=== PATIENT | male | born 2000 | race Caucasian/White ===

== ENCOUNTER 2020-10-23 13:07 | Emergency (ER) | payer OTHER ==
--- NOTE | 2020-10-23 15:36 | ED Physician Documentation ---
PD HPI FOCAL NEURO - Stated complaint Stated Complaint: SPEECH PROB/HEAD PX - Chief complaint Chief Complaint: Neuro - History obtained from History obtained from: Patient - Additional information Additional information: I was initially called out into the waiting room for rapid response. This young man had had a seizure. He was brought in for a week of stuttering, some word finding difficulty and a sensation of pulsating tongue. He was attended to in the waiting room and then moved back into the department. I observed him to have tonic-clonic seizure activity as I arrived in the waiting room which quickly abated. He started talking but was confused. Thought he was in [place]. 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, No motor deficit, No sensory deficit, Normal speech Eye Opening: Spontaneous Motor: Obeys Commands Verbal: Confused GCS Score: 14 Results - Vitals Vitals: Vital Signs - 24 hr 10/23/20 10/23/20 10/23/20 13:32 16:00 16:30 Temperature 37 C Heart Rate 80 135 H 107 H Respiratory 16 22 23 Rate Blood Pressure 132/77 H 128/68 111/64 O2 Saturation 100 99 98 Oxygen O2 Source Room air - EKG (time done) 1532 Rate: Rate (enter#) (100) Rhythm: Sinus tachycardia [place]: Normal Intervals: Normal MT, Prolonged QT (520msec) QRS: Normal Ischemia: Normal ST segments - Labs Labs: Laboratory Tests 10/23/20 10/23/20 10/23/20 15:30 15:35 15:35 WBC 13.0 H RBC 5.51 Hgb 17.4 Hct 53.0 H MCV 96.2 H MCH 31.6 H MCHC 32.8 RDW 12.1 Plt Count 363 MPV 9.5 Neut # (Auto) 8.6 H Lymph # (Auto) 3.6 H [place] # (Auto) 0.6 Eos # (Auto) 0.1 Baso # (Auto) 0.0 Absolute Nucleated RBC 0.00 Nucleated RBC % 0.0 Sodium 143 Potassium 3.4 L Chloride 99 L Carbon Dioxide 13 L Anion Gap 31.0 H BUN 14 Creatinine 0.9 Estimated GFR (MDRD) 106 Glucose 90 POC Whole Bld Glucose 76 Calcium 10.0 Magnesium 2.5 Total Bilirubin 2.6 H AST 30 ALT 26 Alkaline Phosphatase 29 L Total Protein 9.3 H Albumin 5.7 H Globulin 3.6 Albumin/Globulin Ratio 1.6 Ethyl Alcohol < 5.0 PD MEDICAL DECISION MAKING - ED course ED course: 20-year-old gentleman with odd neurologic symptoms and then had a tonic-clonic seizure in the waiting room also has long QT on his EKG. Could be a cardiac or neurologic abnormality. Head CT was normal. 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 Accepted by Dr Stone at [facility] at 1758 Departure - Departure Disposition: 02 Transfer Acute Care Hosp Clinical Impression: Long QT interval, Seizure Condition: Serious
[2020-10-23 15:39] LABS: BASOPHILS % (AUTO) 0.3 %; EOSINOPHILS # (AUTO) 0.1 10^3/uL (0.0-0.7); EOSINOPHILS % (AUTO) 0.5 %; HGB - HEMOGLOBIN 17.4 g/dL (14.0-18.0); LYMPHOCYTES # (AUTO) 3.6 10^3/uL (1.5-3.5); LYMPHOCYTES % (AUTO) 27.4 %; MEAN CORPUSCULAR HEMOGLOBIN 31.6 pg (27.0-31.0); MEAN CORPUSCULAR HGB CONC 32.8 g/dL (32.0-36.0); MEAN CORPUSCULAR VOLUME 96.2 fL (80.0-94.0); MEAN PLATELET VOLUME 9.5 fL (7.4-11.4); MONOCYTES # (AUTO) 0.6 10^3/uL (0.0-1.0); MONOCYTES % (AUTO) 4.8 %; NEUTROPHILS # (AUTO) 8.6 10^3/uL (1.5-6.6); NEUTROPHILS % (AUTO) 66.5 %; PLT - PLATELET COUNT 363 10^3/uL (130-450); RED BLOOD COUNT 5.51 10^6/uL (4.70-6.10); RED CELL DISTRIBUTION WIDTH 12.1 % (12.0-15.0)
[2020-10-23 15:58] LABS: ALBUMIN 5.7 g/dL (3.2-5.5); ALBUMIN/GLOBULIN RATIO 1.6 (1.0-2.2); ALKALINE PHOSPHATASE 29 IU/L (42-121); ALT ALANINE AMINOTRANSFERASE 26 IU/L (10-60); AST ASPARTATE AMINOTRANSFERASE 30 IU/L (10-42); BILIRUBIN,TOTAL 2.6 mg/dL (0.2-1.0); BUN - BLOOD UREA NITROGEN 14 mg/dL (6-20); CARBON DIOXIDE - CO2 13 mmol/L (21-32); CHLORIDE 99 mmol/L (101-111); CREATININE 0.9 mg/dL (0.6-1.2); ETOH - ETHANOL < 5.0 mg/dL; GFR - MDRD 106 (>89); GLUCOSE 90 mg/dL (70-100); MAGNESIUM 2.5 mg/dL (1.7-2.8); POTASSIUM 3.4 mmol/L (3.5-5.0); SODIUM 143 mmol/L (135-145); TOTAL PROTEIN 9.3 g/dL (6.7-8.2)
--- NOTE | 2020-10-23 16:05 | CT Report ---
PROCEDURE: HEAD WO INDICATIONS: seizure TECHNIQUE: Noncontrast 4.5 mm thick angled axial sections acquired from the foramen magnum to the vertex. For r adiation dose reduction, the following was used: automated exposure control, adjustment of mA and/or kV according to patient size. COMPARISON: None. FINDINGS: Image quality: Excellent. CSF spaces: Basal cisterns are patent. No extra-axial fluid collections. Ventricles are normal in size and shape. Brain: No midline shift. No intracranial masses or hemorrhage. Perez-white matter interface is norm al. Skull and face: Calvarium and visualized facial bones are intact, without suspicious lesions. Sinuses: Visualized sinuses and mastoids are clear. IMPRESSION: No acute pulmonary process. Reviewed by: Elma Kelly MD on 10/23/2020 4:03 PM PDT Approved by: Elma Kelly MD on 10/23/2020 4:03 PM PDT Station ID: [id number]
[2020-10-23 18:26] LABS: MUDS CUTOFF CONCENTRATIONS CUTOFF CONC BELOW:
[2020-10-23 18:43] LABS: AMPHETAMINE SCREEN,URINE NEGATIVE (NEGATIVE); BARBITURATE SCREEN,UR NEGATIVE (NEGATIVE); BENZODIAZEPINES SCREEN, URINE NEGATIVE (NEGATIVE); COCAINE SCREEN URINE NEGATIVE (NEGATIVE); METHADONE SCREEN, URINE NEGATIVE (NEGATIVE); METHAMPHETAMINES SCREEN, URINE NEGATIVE (NEGATIVE); OPIATE SCREEN, URINE NEGATIVE (NEGATIVE); OXYCODONE SCREEN, URINE NEGATIVE (NEGATIVE); PROPOXYPHENE SCREEN, URINE NEGATIVE (NEGATIVE); THC CANNABINOID SCREEN, URINE NEGATIVE (NEGATIVE); TRICYCLIC ANTIDEPRESSANT,URINE NEGATIVE (NEGATIVE)
[2020-10-23 19:17] LABS: B. PARAPERTUSSIS- RESP PCR PAN NOT DETECTED; B. PERTUSSIS- RESP PCR PANEL NOT DETECTED; C. PNEUMONIAE- RESP PCR PANEL NOT DETECTED; CORONAVIRUS 229E-RESP PCR NOT DETECTED; CORONAVIRUS HKU1-RESP PCR NOT DETECTED; CORONAVIRUS NL63-RESP PCR NOT DETECTED; CORONAVIRUS OC43-RESP PCR NOT DETECTED; HUMAN METAPNEUMOVIRUS NOT DETECTED; INFLUENZA A- RESP PCR PANEL NOT DETECTED; INFLUENZA B - RESP PCR PANEL NOT DETECTED; M. PNEUMONIAE- RESP PCR PANEL NOT DETECTED; PARAINFLUENZA VIRUS 1 NOT DETECTED; PARAINFLUENZA VIRUS 2 NOT DETECTED; PARAINFLUENZA VIRUS 3 NOT DETECTED; PARAINFLUENZA VIRUS 4 NOT DETECTED; RHINOVIRUS/ENTEROVIRUS NOT DETECTED; RSV- RESP PCR PANEL NOT DETECTED; SARS-CoV-2 -RESP PCR PANEL NOT DETECTED
[2020-10-23] MEDS ORDERED: ACETAMINOPHEN 325 MG TABLET PO STA (21:38)
[2020-10-23 22:11] VITALS: BP 107/57
== END 2020-10-23 22:35 | disposition short-term general hospital (02) ==
LOC: ED 13:07
DX: R56.9 Unspecified convulsions (principal); I45.81 Long QT syndrome; R00.0 Tachycardia, unspecified; Z20.822 Contact with and (suspected) exposure to COVID-19
CPT/HCPCS: 0202U; 36415; 70450; 80053; 80306; 80320; 83735; 85025; 93005; 99285; A9270

== ENCOUNTER 2020-10-28 01:08 | Outpatient (CLI) | payer OTHER | END 2020-10-28 01:09 | disposition short-term general hospital (02) | LOC: EMS 01:08 | DX: R56.9 Unspecified convulsions (principal) | CPT/HCPCS: A0425; A0427 ==

== ENCOUNTER 2020-10-31 10:02 | Outpatient (CLI) | payer OTHER | END 2020-10-31 10:03 | disposition critical access hospital (66) | LOC: EMS 10:02 | DX: R56.9 Unspecified convulsions (principal) | CPT/HCPCS: A0425; A0427 ==

== ENCOUNTER 2020-10-31 10:28 | Emergency (ER) | payer OTHER ==
[2020-10-31 11:32] VITALS: BP 128/81
--- NOTE | 2020-10-31 11:35 | ED Physician Documentation ---
History of Present Illness - Stated complaint Stated Complaint: SZ - Chief complaint Chief Complaint: Neuro - History obtained from History obtained from: Patient, Friend - Additonal information Additional information: 20-year-old woman with past medical history of possible seizure that happened last week, worked up at [facility] by neurology, presents with 2-minute episode of seizure-like activity today during a naval ceremony, with return to baseline and then a second episode moments later. Fingerstick on scene was normal. Patient returned to baseline completely within 10-15 minutes. He stated that he was "with a girl last night" and did not sleep. Also denies eating or drinking anything this morning but states that he felt fine prior to the ceremony Review of Systems Ten Systems: 10 systems reviewed and negative Constitutional: denies: Fever, Chills Cardiac: denies: Chest pain / pressure Respiratory: denies: Dyspnea GI: denies: Nausea, Vomiting Musculoskeletal: denies: Back pain Neurologic: reports: Other (seizure like activity) PD PAST MEDICAL HISTORY - Past Medical History Past Medical History: Yes Cardiovascular: None Respiratory: None Neuro: Seizure disorder Endocrine/Autoimmune: None GI: None : None HEENT: None Psych: None Musculoskeletal: None Derm: None - Past Surgical History Past Surgical History: No - Present Medications Home Medications: Ambulatory Orders Medication Instructions Recorded Confirmed Levetiracetam [Keppra] 1,000 mg PO BID #30 tablet 10/31/20 - Allergies Allergies/Adverse Reactions: Allergies Allergy/AdvReac Type Severity Reaction Status Date / Time No Known Drug Allergies Allergy Verified 10/31/20 10:43 - Social History Does the pt smoke?: No Smoking Status: Never smoker Does the pt drink ETOH?: Yes Does the pt have substance abuse?: No - Immunizations Immunizations are current?: Yes - POLST Patient has POLST: No PD ED PE NORMAL - Vitals Vital signs reviewed: Yes - General General: Alert and oriented X 3, No acute distress, Well developed/nourished - HEENT HEENT: Atraumatic, PERRL, EOMI, Other (abrasion to inner lower lip. 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, No motor deficit, No sensory deficit, Normal speech, Other (ambultaory without difficulty) - Psych Psych: Normal mood, Normal affect Results - Vitals Vitals: Vital Signs - 24 hr 10/31/20 10/31/20 10/31/20 10:36 10:48 11:32 Temperature 36.8 C Heart Rate 116 H 106 H 97 Respiratory 20 20 20 Rate Blood Pressure 120/82 H 123/103 H 128/81 H O2 Saturation 96 98 99 Oxygen O2 Source Room air - EKG (time done) 1122 Rate: Rate (enter#) (95) Rhythm: NSR [place]: Normal Intervals: Normal [place] QRS: Normal Ischemia: Normal ST segments, Other (BIRDIE) PD MEDICAL DECISION MAKING - ED course ED course: On further discussion with the patient's friend who was present he gave this history: 2-3 minutes before the episode he was making strange faces and his shoulders were twitching. He fell to the ground, had 2 min of rhythmic activity of all four limbs, then looked around and said "what happened" then again had rhythmic activity lasting about another 2 minutes. He then woke up again and was immediately apologetic, talking immediately after the second episode, asking why he was on the ground and why his knee was scraped up. d/w Dr. Dubose who states that epileptic seizure is lower on the differential and [facility] neurology is investigating other causes for these episodes. He recommends continuing with outpatient workup for these episodes. he did however recommend starting an AED until workup is complete. d/w patient and family who are agreeable. return precautions given. Departure - Departure Disposition: 01 Home, Self Care Clinical Impression: Seizure-like activity Condition: Good Prescriptions: Levetiracetam [Keppra] 1,000 mg PO BID #30 tablet Comments: You were seen in the emergency department for a seizure-like episode. You need to get EEG monitoring to see whether these are true seizures before starting anti-seizure medication. It is possible there is another cause which will be investigated further by your neurologist. Please return to the emergency department if you have any new or worsening symptoms or other concerns.
[2020-10-31] MEDS ORDERED: BACITRACIN ZINC OINT 1 PACKET TOP STA (11:41)
== END 2020-10-31 12:24 | disposition home or self-care (01) ==
LOC: EDUNIT# → ED 10:28
DX: R56.9 Unspecified convulsions (principal); S00.81XA Abrasion of other part of head, initial encounter; S00.511A Abrasion of lip, initial encounter; S60.512A Abrasion of left hand, initial encounter; S60.511A Abrasion of right hand, initial encounter; S80.212A Abrasion, left knee, initial encounter; S80.211A Abrasion, right knee, initial encounter; W18.30XA Fall on same level, unspecified, initial encounter
CPT/HCPCS: 80053; 83690; 84484; 85025; 93005; 99283; 99284